=== PATIENT | female | born 1985 | race Two or more races ===

== ENCOUNTER → 2022-05-16 | Day surgery (SDC) | payer OTHER | END | disposition home or self-care (01) | LOC: ADM 05-13 12:15 → CIR.AMB 06:00 | PROVIDERS: ATTEND Obstetrics & Gynecology | DX: N84.0 Polyp of corpus uteri (principal); N72 Inflammatory disease of cervix uteri; Z30.432 Encounter for removal of intrauterine contraceptive device; Z86.16 Personal history of COVID-19; J45.909 Unspecified asthma, uncomplicated; E03.9 Hypothyroidism, unspecified; E66.01 Morbid (severe) obesity due to excess calories ==